=== PATIENT | female | born 1990 | race Two or more races ===

== ENCOUNTER 2020-07-23 06:50 | Day surgery (SDC) | payer OTHER | END 2020-07-23 20:30 | disposition home or self-care (01) | LOC: CIR.AMB 06:50 | PROVIDERS: ATTEND Obstetrics & Gynecology | DX: N87.1 Moderate cervical dysplasia (principal); Z20.822 Contact with and (suspected) exposure to COVID-19 ==

== ENCOUNTER 2021-05-05 12:00 | Inpatient (IN) | payer OTHER ==
[~2021-05-05] VITALS: Ht 152.4 cm; Wt 3.6 kg
[2021-05-12] MEDS ORDERED: NASAL MIST126 ML (07:54)
[2021-05-12] MEDS ORDERED: PRENATAL TABLE1 EAC3 PO (07:54)
== END 2021-05-15 12:37 | disposition home or self-care (01) | DRG 785 ==
LOC: LDR 05-12 07:16 → SURH 05-12 12:00 → OB/GYN 05-12 18:58
PROVIDERS: ADMIT Obstetrics & Gynecology; ATTEND Obstetrics & Gynecology
PROC: 0UB70ZZ Excision of Bilateral Fallopian Tubes, Open Approach (ICD-10-PCS; 2021-05-12)
PROC: 4A1HXCZ Monitoring of Products of Conception, Cardiac Rate, External Approach (ICD-10-PCS; 2021-05-12)
PROC: 10D00Z1 Extraction of Products of Conception, Low, Open Approach (ICD-10-PCS; principal; 2021-05-12 17:15)
DX: O82 Encounter for cesarean delivery without indication (principal); Z30.2 Encounter for sterilization; Z3A.40 40 weeks gestation of pregnancy; Z37.0 Single live birth; Z20.822 Contact with and (suspected) exposure to COVID-19